=== PATIENT | male | born 1985 | race Hispanic/Latino ===

== ENCOUNTER → 2019-04-03 | Outpatient (CLI) | payer OTHER ==
[~2019-04-03] MED LIST: ASCO10007 PO; INSU300I SQ; MULT-462 PO
== END | disposition home or self-care (01) ==
LOC: RAH 08:51
PROVIDERS: ATTEND Internal Medicine
DX: N32.9 Bladder disorder, unspecified (principal); N32.0 Bladder-neck obstruction
CPT/HCPCS: 76770

== ENCOUNTER 2019-05-30 13:47 | Inpatient (IN) | payer OTHER | END 2019-06-05 21:20 | disposition home or self-care (01) | LOC: EDH 13:47 → EDHIP 16:47 → 3DH 20:35 | PROC: 0JBQ0ZZ Excision of Right Foot Subcutaneous Tissue and Fascia, Open Approach (ICD-10-PCS; principal; 2019-06-02 16:30) | DX: A41.9 Sepsis, unspecified organism (principal); L03.115 Cellulitis of right lower limb; L02.611 Cutaneous abscess of right foot; D64.9 Anemia, unspecified; E66.9 Obesity, unspecified; Z68.35 Body mass index [BMI] 35.0-35.9, adult; I10 Essential (primary) hypertension; E11.9 Type 2 diabetes mellitus without complications ==

== ENCOUNTER 2020-10-12 19:38 | Inpatient (IN) | payer OTHER ==
[~2020-10-12] VITALS: Ht 165.1 cm; Wt 96.2 kg
[~2020-10-12 19:38] MED LIST changes: +AMLO-340 PO; +AMLO5TAB4 PO; -ASCO10007 PO; +INSU100I26 SQ; -INSU300I SQ; +METF-446 PO; +METO25 PO; -MULT-462 PO
[2020-10-12 20:58] LABS: INR 0.95 (0.85-1.15); PARTIAL THROMBOPLASTIN TIME 28.2 SEC (26.3-35.5); PROTHROMBIN TIME 10.3 SEC (9.6-11.6)
[2020-10-12 21:02] LABS: BASOPHILS % (AUTO) 0.2 % (0.0-5.0); EOSINOPHILS % (AUTO) 0.1 % (0.0-8.0); HEMATOCRIT 36.8 % (42-54); LYMPHOCYTES % (AUTO) 13.9 % (21.0-51.0); MEAN CORPUSCULAR HEMOGLOBIN 29.2 pg (27.0-33.0); MEAN CORPUSCULAR HGB CONC 34.8 g/dL (32.0-36.0); MEAN CORPUSCULAR VOLUME 83.8 fL (79-99); MONOCYTES % (AUTO) 8.3 % (3.0-13.0); RED BLOOD CELL COUNT(AUTO) 4.39 MIL/uL (4.50-6.20); RED CELL DISTRIBUTION WIDTH 11.6 % (11.0-15.5); WHITE BLOOD COUNT (AUTO) 9.5 K/uL (4.8-10.8)
[2020-10-12 21:04] LABS: PLATELET COUNT (AUTO) 720 K/uL (130-400)
[2020-10-12 21:18] LABS: ALBUMIN 2.6 g/dL (3.5-5.0); BILIRUBIN,TOTAL 0.3 mg/dL (0.2-1.0); CREATININE 2.3 mg/dL (0.5-1.5); POTASSIUM 4.3 mmol/L (3.5-5.1); TOTAL PROTEIN, SERUM 7.4 g/dL (6.0-8.3)
[2020-10-12] MEDS ORDERED: SODIUM CHLORIDE 0.9% 1000ML 1,000 ML IV ONE ×2 (21:24→22:29)
[2020-10-12] MEDS ORDERED: INSULIN HUMULIN R 100 UNIT/ML 3ML ONE (21:25)
[2020-10-12 21:27] LABS: PLATELET MORPHOLOGY COMMENT INCREASED
[2020-10-12 21:44] LABS: ABG BASE EXCESS 2.6 mmol/L (-2.0-3.0); ABG HCO3 26.2 mmol/L (21.0-28.0); ABG OXYGEN SATURATION 96.8 % (95.0-99.0); ABG PCO2 37 mmHg (35-48)
[2020-10-13] VITALS (8 sets, daily range): BP systolic 140–186; BP diastolic 79–112
[2020-10-13] MEDS ORDERED: MORPHINE SULFATE 2 MG/ML 1ML SYG IV PRN (05:00)
[2020-10-13] MEDS ORDERED: ONDANSETRON HCL 4 MG/2 ML VIAL IV PRN (05:00)
[2020-10-13] MEDS ORDERED: ACETAMINOPHEN 325 MG TAB PO PRN ×2 (05:00)
[2020-10-13 06:25] LABS: BASOPHILS % (AUTO) 0.3 % (0.0-5.0); EOSINOPHILS % (AUTO) 1.2 % (0.0-8.0); HEMATOCRIT 34.5 % (42-54); LYMPHOCYTES % (AUTO) 35.8 % (21.0-51.0); MEAN CORPUSCULAR HEMOGLOBIN 29.5 pg (27.0-33.0); MEAN CORPUSCULAR HGB CONC 34.8 g/dL (32.0-36.0); MEAN CORPUSCULAR VOLUME 84.8 fL (79-99); MONOCYTES % (AUTO) 8.9 % (3.0-13.0); NEUTROPHILS % (AUTO) 53.2 % (40.0-77.0); PLATELET COUNT (AUTO) 592 K/uL (130-400); RED BLOOD CELL COUNT(AUTO) 4.07 MIL/uL (4.50-6.20); RED CELL DISTRIBUTION WIDTH 11.7 % (11.0-15.5); WHITE BLOOD COUNT (AUTO) 6.9 K/uL (4.8-10.8)
[2020-10-13] MEDS ORDERED: [UNRECOGNIZED DRUG - OTHER] SQ (06:49)
[2020-10-13] MEDS ORDERED: METO50TA18 PO (06:49)
[2020-10-13 06:51] LABS: ALBUMIN 2.3 g/dL (3.5-5.0); BILIRUBIN,TOTAL 0.3 mg/dL (0.2-1.0); CREATININE 1.7 mg/dL (0.5-1.5); POTASSIUM 3.7 mmol/L (3.5-5.1); TOTAL PROTEIN, SERUM 6.5 g/dL (6.0-8.3)
[2020-10-13] MEDS: SODIUM CHLORIDE 0.9% 1000ML 1,000 ML IV SCH ×2 (06:57→15:00)
[2020-10-13 09:06] LABS: APPEARANCE,URINE Clear (CLEAR); BILIRUBIN,URINE Negative (NEGATIVE); COLOR,URINE Yellow (YELLOW); GLUCOSE, URINE (UA) >=1000 mg/dL (NEGATIVE); KETONES,URINE Negative (NEGATIVE); LEUKOCYTE ESTERASE ,URINE Negative (NEGATIVE); NITRATE,URINE Negative (NEGATIVE); OCCULT BLOOD,URINE Moderate (NEGATIVE); PH,URINE 5.5 (5.0-8.0); PROTEIN,URINE 300 mg/dL (NEGATIVE); UROBILINOGEN,URINE 0.2 mg/dL (0.2-1.0)
[2020-10-13 09:15] LABS: AMPHET/METH SCREEN,URINE NEGATIVE (NEGATIVE); BARBITURATE SCREEN, URINE NEGATIVE (NEGATIVE); BENZODIAZEPINES SCREEN,URINE NEGATIVE (NEGATIVE); CANNABINOID SCREEN,URINE NEGATIVE (NEGATIVE); COCAINE SCREEN,URINE NEGATIVE (NEGATIVE); OPIATE SCREEN,URINE NEGATIVE (NEGATIVE); PHENCYCLIDINE SCREEN,URINE NEGATIVE (NEGATIVE)
[2020-10-13 09:16] LABS: HEMOGLOBIN A1C 10.9 % (4.0-6.0)
[2020-10-13] MEDS: FAMOTIDINE/PF 20 MG/2 ML VIAL IV SCH (09:22)
[2020-10-13] MEDS: METOPROLOL TARTRATE 50 MG TAB PO SCH ×2 (09:22→20:59)
[2020-10-13 09:48] LABS: BACTERIA,URINE Rare /HPF (None Seen); RBC,URINE 0-1 /HPF (0-1); SPERM,URINE Few /HPF (None Seen); SQUAMOUS EPITHELIAL CELL,UR Rare /HPF (0-2)
[2020-10-13] MEDS ORDERED: REGADENOSON 0.4 MG/5 ML PF SYG IVP SCH (11:15)
[2020-10-13] MEDS ORDERED: LABETALOL HCL 5 MG/ML 20ML VIAL IV PRN (13:15)
[2020-10-13] MEDS ORDERED: LABETALOL 20 MG/4 ML DISP.SYRIN IV ONE (13:26)
--- NOTE | 2020-10-13 14:05 | NUR ---
PATIENT UNAVAILABLE FOR ECHO. PATIENT IN NUC MED.
--- NOTE | 2020-10-13 17:00 | NUR ---
[facility] CM met with pt this morning, discussed dc plans. Pt is independent prior to admission, lives at home with parents and gradmother. Pt has a shower chair, wheelchair, glucometer and strips, uses [facility] for meds. Denies any other equipments/services. Feel safe to go back home, family able to assist with transportation and needs as necessary. Pt selfpay, given [employer] packet, [facility] assisting. DC plan to home once stable. CM to continue to follow up. Addendum: 10/13/20 at 1703 by ANNIKA WADSWORTH LVN CM Amended: Links added.
[2020-10-13] MEDS: INSULIN HUMULIN R 100 UNIT/ML 3ML SQ SCH (20:58)
[2020-10-14] MEDS: SODIUM CHLORIDE 0.9% 1000ML 1,000 ML IV SCH ×2 (01:00→11:00)
[2020-10-14 03:18] VITALS: BP 137/81
[2020-10-14] MEDS: INSULIN HUMULIN R 100 UNIT/ML 3ML SQ SCH ×2 (06:31→13:24)
[2020-10-14] MEDS ORDERED: INSULIN GLARGINE 100 UNITS/ML 10 ML VIAL SQ SCH (08:30)
[2020-10-14] MEDS ORDERED: Vitamin B Complex/Vit C/Folic Acid PO SCH (09:00)
[2020-10-14 09:07] VITALS: BP 167/114
[2020-10-14] MEDS: FAMOTIDINE/PF 20 MG/2 ML VIAL IV SCH (09:46)
[2020-10-14] MEDS: METOPROLOL TARTRATE 50 MG TAB PO SCH (09:46)
[2020-10-14] MEDS ORDERED: INSULIN HUMULIN R 100 UNIT/ML 3ML SQ SCH (11:30)
[2020-10-14 15:06] VITALS: BP 156/83
--- NOTE | 2020-10-14 15:11 | NUR ---
RD NOTIFICATION Pt admitted due to DM with hyperglycemia and hyponatremia. As per EMR pt had a syncopal episode prior to admission. As per EMR, Lexiscan showed no evidence of ischemia, Pt is currently on a 60 gm CC diet and consuming 100% Pt has a hx of type 2 DM insulin dependent. Pt stated not having adequate prior education to DM diet. Pt stated his previous weight was of 214 lbs. No significant wt loss or poor PO intake. RD RECOMMENDATION: Continue current diet order Monitor PO intake As per MD notes, if pt has proteinuria, pt will benefit from a renal non HD diet modifier to current diet order Pt denied education at this time. Pt stated he is discharging soon RD to follow pt's status Contact as nutritional concerns arise LABS: NA 135, CL 100, CREAT 1.7, GFR 49, A1C 10.9, TROPONIN 0.08, TCK 496, ALB 2.3, TOT PRO 6.5, BUN 20 LBM: 10/13/20 Addendum: 10/14/20 at [address] Amended: Links added.
--- NOTE | 2020-10-14 16:26 | NUR ---
DISCHARGE INSTRUCTION PROVIDED TO PATIENT .PATIENT VERBALIZED UNDERSTANDING
--- NOTE | 2020-10-17 10:28 | NUR ---
TRANSITIONAL CARE - POST-DISCHARGE NOTE I called Mr Otero at [phone]. As per Mr. Otero, he is doing well. He states he is taking his home medications as ordered. He also states he has yet to set up any follow up appointments, but is aware of upcoming appointment with Dr Moore. I offered to call his PCP and Dr Rodriguez to set appointments. He politely refused and stated he would call them on his own today to make appointments. Patient denied pian SOB, N/V/D, dizzines, CP, fevers.
== END 2020-10-14 14:00 | disposition home or self-care (01) | DRG 312 ==
LOC: EDH 19:38 → EDHIP 19:39 → 4DH 10-13 05:26
PROVIDERS: ADMIT Internal Medicine; ATTEND Internal Medicine
DX: R55 Syncope and collapse (principal); E44.1 Mild protein-calorie malnutrition; E87.1 Hypo-osmolality and hyponatremia; N17.9 Acute kidney failure, unspecified; M62.82 Rhabdomyolysis; E11.65 Type 2 diabetes mellitus with hyperglycemia; E11.21 Type 2 diabetes mellitus with diabetic nephropathy; D64.9 Anemia, unspecified; R07.9 Chest pain, unspecified; R77.8 Other specified abnormalities of plasma proteins; E11.319 Type 2 diabetes mellitus with unspecified diabetic retinopathy without macular edema; E11.42 Type 2 diabetes mellitus with diabetic polyneuropathy; E78.5 Hyperlipidemia, unspecified; N18.9 Chronic kidney disease, unspecified; Z79.4 Long term (current) use of insulin; Z89.421 Acquired absence of other right toe(s); Z88.8 Allergy status to other drugs, medicaments and biological substances; Z68.35 Body mass index [BMI] 35.0-35.9, adult; Z20.828 Contact with and (suspected) exposure to other viral communicable diseases
CPT/HCPCS: 36415; 36600; 70450; 71045; 78452; 80053; 80305; 81001; 82550; 82803; 82948; 83036; 84145; 84484; 85025; 85610; 85730; 87426; 93005; 93017; 93306; 93356; 96374; A9500; G0378; J1815; J2785; J3490; J7030; U0003

== ENCOUNTER 2021-02-22 15:03 | Inpatient (IN) | payer OTHER ==
[~2021-02-22] VITALS: Ht 167.6 cm; Wt 98.0 kg
[~2021-02-22 15:03] MED LIST changes: -AMLO-340 PO; -AMLO5TAB4 PO; -INSU100I26 SQ; -METO25 PO; +METO50TA18 PO
[2021-02-22] MEDS ORDERED: 0.9%NACL 1000ML 1,000 ML IV ONE ×3 (16:19→21:58)
[2021-02-22] MEDS ORDERED: LIDOCAINE HCL 2% VISCOUS 15 ML UDCUP ONE (16:20)
[2021-02-22] MEDS ORDERED: MAG/ALUM/SIMETH 30 ML UDCUP ONE (16:20)
[2021-02-22] MEDS ORDERED: METOCLOPRAMIDE 10 MG/2 ML VIAL ONE (16:20)
[2021-02-22] MEDS ORDERED: PANTOPRAZOLE 40 MG/VIAL ONE (16:21)
[2021-02-22 16:28] LABS: BASOPHILS % (AUTO) 0.5 % (0.0-5.0); EOSINOPHILS % (AUTO) 0.2 % (0.0-8.0); HEMATOCRIT 45.3 % (42-54); LYMPHOCYTES % (AUTO) 13.7 % (21.0-51.0); MEAN CORPUSCULAR HEMOGLOBIN 29.4 pg (27.0-33.0); MEAN CORPUSCULAR HGB CONC 35.3 g/dL (32.0-36.0); MEAN CORPUSCULAR VOLUME 83.1 fL (79-99); NEUTROPHILS % (AUTO) 79.4 % (40.0-77.0); PLATELET COUNT (AUTO) 307 K/uL (130-400); RED BLOOD CELL COUNT(AUTO) 5.45 MIL/uL (4.50-6.20); WHITE BLOOD COUNT (AUTO) 9.5 K/uL (4.8-10.8)
[2021-02-22 16:45] LABS: ALBUMIN 3.3 g/dL (3.5-5.0); BILIRUBIN,TOTAL 0.4 mg/dL (0.2-1.0); CREATININE 2.4 mg/dL (0.5-1.5); POTASSIUM 4.5 mmol/L (3.5-5.1); TOTAL PROTEIN, SERUM 7.8 g/dL (6.0-8.3)
[2021-02-22 19:13] LABS: APPEARANCE,URINE Cloudy (CLEAR); BILIRUBIN,URINE Negative (NEGATIVE); COLOR,URINE Yellow (YELLOW); GLUCOSE, URINE (UA) 500 mg/dL (NEGATIVE); KETONES,URINE Negative (NEGATIVE); LEUKOCYTE ESTERASE ,URINE Negative (NEGATIVE); NITRATE,URINE Negative (NEGATIVE); OCCULT BLOOD,URINE Small (NEGATIVE); PROTEIN,URINE 300 mg/dL (NEGATIVE); UROBILINOGEN,URINE 0.2 mg/dL (0.2-1.0)
[2021-02-22 19:19] LABS: AMPHET/METH SCREEN,URINE NEGATIVE (NEGATIVE); BARBITURATE SCREEN, URINE NEGATIVE (NEGATIVE); BENZODIAZEPINES SCREEN,URINE NEGATIVE (NEGATIVE); CANNABINOID SCREEN,URINE NEGATIVE (NEGATIVE); COCAINE SCREEN,URINE NEGATIVE (NEGATIVE); OPIATE SCREEN,URINE NEGATIVE (NEGATIVE); PHENCYCLIDINE SCREEN,URINE NEGATIVE (NEGATIVE)
[2021-02-22 19:27] LABS: BACTERIA,URINE Few /HPF (None Seen); SQUAMOUS EPITHELIAL CELL,UR Rare /HPF (0-2); WBC,URINE 0-1 /HPF (0-1)
[2021-02-22 19:30] LABS: COARSE GRANULAR CASTS,URINE 0-2 /LPF (None Seen)
[2021-02-22] MEDS ORDERED: NITROGLYCERIN 0.4 MG SL TAB SL PRN (20:30)
[2021-02-22] MEDS ORDERED: GLUCAGON 1MG KIT 1 MG ML IM PRN (20:30)
[2021-02-22] MEDS ORDERED: ACETAMINOPHEN 325 MG TAB PO PRN ×2 (20:30)
[2021-02-22] MEDS ORDERED: DEXTROSE 50%-WATER 50 ML DISP.SYRIN IV PRN (20:30)
[2021-02-22] MEDS: 0.9%NACL 1000ML 1,000 ML IV SCH (20:30)
[2021-02-22] MEDS ORDERED: ONDANSETRON 4MG INJ IV PRN (20:30)
[2021-02-22 20:41] LABS: HEMOGLOBIN A1C 8.4 % (4.0-6.0)
[2021-02-22] MEDS: HEPARIN 5,000 UNIT VIAL SQ SCH (20:45)
[2021-02-22] MEDS: FAMOTIDINE 20MG TAB PO SCH (21:00)
[2021-02-22] MEDS: INSULIN HUMULIN R 100 UNIT/ML 3ML SQ SCH (21:00)
[2021-02-22] MEDS ORDERED: HEPARIN 5,000 UNIT VIAL ONE (22:34)
[2021-02-22 23:40] VITALS: BP 148/91
[2021-02-23] MEDS ORDERED: ROSU20TA31 PO (00:06)
[2021-02-23] MEDS ORDERED: INSU300I SQ (00:06)
[2021-02-23] MEDS ORDERED: FOLI1TAB61 PO (00:06)
[2021-02-23] MEDS ORDERED: METF-527 PO (00:06)
[2021-02-23] MEDS ORDERED: INSREG SQ (00:06)
[2021-02-23] MEDS: 0.9%NACL 1000ML 1,000 ML IV SCH ×2 (00:32→16:30)
[2021-02-23 04:00] VITALS: BP 158/88
[2021-02-23] MEDS: HEPARIN 5,000 UNIT VIAL SQ SCH ×3 (04:33→20:05)
[2021-02-23 05:17] LABS: BASOPHILS % (AUTO) 0.5 % (0.0-5.0); EOSINOPHILS % (AUTO) 0.5 % (0.0-8.0); LYMPHOCYTES % (AUTO) 30.2 % (21.0-51.0); MEAN CORPUSCULAR HEMOGLOBIN 28.8 pg (27.0-33.0); MEAN CORPUSCULAR HGB CONC 34.1 g/dL (32.0-36.0); MEAN CORPUSCULAR VOLUME 84.4 fL (79-99); MONOCYTES % (AUTO) 9.7 % (3.0-13.0); NEUTROPHILS % (AUTO) 58.9 % (40.0-77.0); PLATELET COUNT (AUTO) 276 K/uL (130-400); RED BLOOD CELL COUNT(AUTO) 4.86 MIL/uL (4.50-6.20); RED CELL DISTRIBUTION WIDTH 12.3 % (11.0-15.5)
[2021-02-23 05:44] LABS: ALBUMIN 2.9 g/dL (3.5-5.0); BILIRUBIN,TOTAL 0.3 mg/dL (0.2-1.0); MAGNESIUM 1.9 mg/dL (1.80-2.40)
[2021-02-23] MEDS: INSULIN HUMULIN R 100 UNIT/ML 3ML SQ SCH ×4 (06:09→20:06)
[2021-02-23 08:04] VITALS: BP 185/107
[2021-02-23] MEDS ORDERED: ENOXAPARIN SODIUM 30 MG/0.3 ML SQ SCH (09:00)
[2021-02-23] MEDS: METOPROLOL TARTRATE 50 MG TAB PO SCH ×2 (09:21→19:59)
[2021-02-23] MEDS: Vitamin B Complex/Vit C/Folic Acid PO SCH (09:21)
[2021-02-23] MEDS: ATORVASTATIN 40 MG TABLET PO SCH (09:21)
[2021-02-23 12:04] VITALS: BP 188/105
[2021-02-23] MEDS: HYDRALAZINE 20MG/ML VIAL IV PRN (12:10)
[2021-02-23] MEDS ORDERED: MAGNESIUM 2GM PREMIX 50ML 50 ML IV SCH (15:15)
[2021-02-23 17:17] VITALS: BP 141/88
[2021-02-23] MEDS: FAMOTIDINE 20MG TAB PO SCH (19:59)
[2021-02-23 20:00] VITALS: BP 158/96
[2021-02-24] VITALS (7 sets, daily range): BP systolic 129–184; BP diastolic 65–102
[2021-02-24] MEDS: 0.9%NACL 1000ML 1,000 ML IV SCH ×3 (02:38→20:29)
[2021-02-24] MEDS: HEPARIN 5,000 UNIT VIAL SQ SCH ×3 (04:59→20:25)
[2021-02-24 05:28] LABS: BASOPHILS % (AUTO) 0.9 % (0.0-5.0); EOSINOPHILS % (AUTO) 1.5 % (0.0-8.0); LYMPHOCYTES % (AUTO) 39.4 % (21.0-51.0); MEAN CORPUSCULAR HEMOGLOBIN 28.6 pg (27.0-33.0); MEAN CORPUSCULAR HGB CONC 33.7 g/dL (32.0-36.0); MEAN CORPUSCULAR VOLUME 84.8 fL (79-99); MONOCYTES % (AUTO) 8.7 % (3.0-13.0); NEUTROPHILS % (AUTO) 49.4 % (40.0-77.0); PLATELET COUNT (AUTO) 307 K/uL (130-400); RED BLOOD CELL COUNT(AUTO) 5.07 MIL/uL (4.50-6.20); RED CELL DISTRIBUTION WIDTH 12.3 % (11.0-15.5); WHITE BLOOD COUNT (AUTO) 7.6 K/uL (4.8-10.8)
[2021-02-24 06:02] LABS: CREATININE 1.8 mg/dL (0.5-1.5); POTASSIUM 3.4 mmol/L (3.5-5.1)
[2021-02-24] MEDS: INSULIN HUMULIN R 100 UNIT/ML 3ML SQ SCH ×4 (06:54→21:00)
[2021-02-24] MEDS: METOPROLOL TARTRATE 50 MG TAB PO SCH ×2 (11:02→20:18)
[2021-02-24] MEDS: ATORVASTATIN 40 MG TABLET PO SCH (11:02)
[2021-02-24] MEDS: Vitamin B Complex/Vit C/Folic Acid PO SCH (11:02)
[2021-02-24] MEDS ORDERED: HYDRALAZINE 20MG/ML VIAL IV PRN (17:30)
[2021-02-24] MEDS: HYDRALAZINE 20MG/ML VIAL IV PRN (17:51)
[2021-02-24] MEDS: FAMOTIDINE 20MG TAB PO SCH (20:18)
[2021-02-25 01:01] VITALS: BP 134/88
[2021-02-25 04:00] VITALS: BP 136/74
[2021-02-25] MEDS: HEPARIN 5,000 UNIT VIAL SQ SCH (05:57)
[2021-02-25] MEDS: INSULIN HUMULIN R 100 UNIT/ML 3ML SQ SCH (05:59)
[2021-02-25 06:24] LABS: ALBUMIN 2.8 g/dL (3.5-5.0); BILIRUBIN,TOTAL 0.3 mg/dL (0.2-1.0); CREATININE 1.7 mg/dL (0.5-1.5); MAGNESIUM 1.9 mg/dL (1.80-2.40); POTASSIUM 3.8 mmol/L (3.5-5.1); TOTAL PROTEIN, SERUM 6.5 g/dL (6.0-8.3)
[2021-02-25 08:00] VITALS: BP 165/79
[2021-02-25] MEDS: Vitamin B Complex/Vit C/Folic Acid PO SCH (08:53)
[2021-02-25] MEDS: METOPROLOL TARTRATE 50 MG TAB PO SCH (08:53)
[2021-02-25] MEDS: ATORVASTATIN 40 MG TABLET PO SCH (08:53)
[2021-02-25] MEDS: 0.9%NACL 1000ML 1,000 ML IV SCH (09:02)
[2021-02-25 11:31] VITALS: BP 149/72
== END 2021-02-25 15:20 | disposition home or self-care (01) | DRG 683 ==
LOC: EDH 15:03 → EDHIP 20:11 → 3AH 23:43
PROVIDERS: ADMIT Hospitalist; ATTEND Hospitalist
DX: N17.9 Acute kidney failure, unspecified (principal); M62.82 Rhabdomyolysis; N18.30 Chronic kidney disease, stage 3 unspecified; Z68.33 Body mass index [BMI] 33.0-33.9, adult; E78.5 Hyperlipidemia, unspecified; K76.0 Fatty (change of) liver, not elsewhere classified; E66.9 Obesity, unspecified; E11.22 Type 2 diabetes mellitus with diabetic chronic kidney disease; I12.9 Hypertensive chronic kidney disease with stage 1 through stage 4 chronic kidney disease, or unspecified chronic kidney disease; Z20.822 Contact with and (suspected) exposure to COVID-19; Z88.2 Allergy status to sulfonamides; Z88.8 Allergy status to other drugs, medicaments and biological substances; Z89.421 Acquired absence of other right toe(s); Z83.3 Family history of diabetes mellitus; Z82.49 Family history of ischemic heart disease and other diseases of the circulatory system
CPT/HCPCS: 36415; 70450; 74018; 76705; 80048; 80053; 80305; 81001; 82150; 82550; 82948; 83036; 83690; 83735; 84484; 85025; 87426; 93005; C9113; G0378; J0360; J1644; J1815; J2405; J2765; J3475; J7030; U0003

== ENCOUNTER 2021-05-18 22:49 | Emergency (ER) | payer OTHER ==
[~2021-05-18] VITALS: Ht 167.6 cm; Wt 99.8 kg
[~2021-05-18 22:49] MED LIST changes: +FOLI1TAB61 PO; +INSREG SQ; +INSU300I SQ; -METF-446 PO; +METF-527 PO
[2021-05-18 22:50] VITALS: BP 175/105
[2021-05-18 23:57] VITALS: BP 158/85
[2021-05-18] MEDS ORDERED: SOLU-MEDROL 125MG VIAL ONE (23:59)
[2021-05-19] MEDS ORDERED: SOLU-MEDROL 125MG VIAL IM ONE
[2021-05-19] MEDS ORDERED: PRED20TA3 PO (00:13)
[2021-05-19] MEDS ORDERED: SOLU-MEDROL 125MG VIAL ONE (00:23)
== END 2021-05-19 00:46 | disposition home or self-care (01) ==
LOC: EDH 23:17
DX: G51.0 Bell's palsy (principal); B02.9 Zoster without complications; E11.9 Type 2 diabetes mellitus without complications; E78.00 Pure hypercholesterolemia, unspecified; I10 Essential (primary) hypertension; Z79.4 Long term (current) use of insulin; Z79.52 Long term (current) use of systemic steroids; Z79.899 Other long term (current) drug therapy; Z88.1 Allergy status to other antibiotic agents; Z88.2 Allergy status to sulfonamides
CPT/HCPCS: 96372; 99283; J2930 ×2

== ENCOUNTER 2022-07-11 18:46 | Emergency (ER) | payer OTHER ==
[~2022-07-11] VITALS: Ht 167.6 cm; Wt 99.3 kg
[~2022-07-11 18:46] MED LIST changes: +PRED20TA3 PO
[2022-07-11] MEDS ORDERED: 0.9%NACL 1000ML 1,000 ML IV SCH (19:00)
[2022-07-11] MEDS ORDERED: PROMETHAZINE HCL 25 MG/ML 1ML AMPULE IM SCH (19:30)
[2022-07-11] MEDS ORDERED: ACETAMINOPHEN 500 MG TABLET PO ONE (19:30)
[2022-07-11] MEDS ORDERED: 0.9% NACL 500ML IV.SOLN 500 ML IV SCH (19:30)
[2022-07-11] MEDS ORDERED: CYCLOBENZAPRINE HCL 10 MG TABLET PO ONE (19:30)
[2022-07-11 19:31] LABS: BASOPHILS % (AUTO) 0.8 % (0.0-5.0); EOSINOPHILS % (AUTO) 2.6 % (0.0-8.0); HEMATOCRIT 39.7 % (42-54); LYMPHOCYTES % (AUTO) 28.6 % (21.0-51.0); MEAN CORPUSCULAR HEMOGLOBIN 30.3 pg (27.0-33.0); MEAN CORPUSCULAR HGB CONC 34.8 g/dL (32.0-36.0); MEAN CORPUSCULAR VOLUME 87.1 fL (79-99); MONOCYTES % (AUTO) 8.8 % (3.0-13.0); NEUTROPHILS % (AUTO) 59.1 % (40.0-77.0); PLATELET COUNT (AUTO) 308 K/uL (130-400); RED BLOOD CELL COUNT(AUTO) 4.56 MIL/uL (4.50-6.20); WHITE BLOOD COUNT (AUTO) 7.8 K/uL (4.8-10.8)
[2022-07-11] MEDS ORDERED: HYDRALAZINE 20MG/ML VIAL ONE (19:39)
[2022-07-11] MEDS ORDERED: ACETAMINOPHEN 500 MG TABLET ONE (19:39)
[2022-07-11] MEDS ORDERED: CYCLOBENZAPRINE HCL 10 MG TABLET ONE (19:39)
[2022-07-11 19:40] LABS: CREATININE 2.9 mg/dL (0.5-1.5)
[2022-07-11 19:44] LABS: ALBUMIN 2.3 g/dL (3.5-5.0); TOTAL PROTEIN, SERUM 6.5 g/dL (6.0-8.3)
[2022-07-11] MEDS ORDERED: HYDRALAZINE 20MG/ML VIAL IV ONE ×2 (20:00→20:30)
[2022-07-11 20:41] VITALS: BP 130/79
[2022-07-11] MEDS ORDERED: RIZA10TA23 PO (20:47)
[2022-07-11] MEDS ORDERED: CYCL10TA16 PO (20:49)
== END 2022-07-11 20:59 | disposition home or self-care (01) ==
LOC: EDH 18:46
DX: G43.909 Migraine, unspecified, not intractable, without status migrainosus (principal); N28.9 Disorder of kidney and ureter, unspecified; I10 Essential (primary) hypertension; Z20.822 Contact with and (suspected) exposure to COVID-19; E66.01 Morbid (severe) obesity due to excess calories; E78.00 Pure hypercholesterolemia, unspecified; E11.9 Type 2 diabetes mellitus without complications; Z88.1 Allergy status to other antibiotic agents; Z88.2 Allergy status to sulfonamides; Z79.4 Long term (current) use of insulin; Z79.52 Long term (current) use of systemic steroids; Z68.35 Body mass index [BMI] 35.0-35.9, adult
CPT/HCPCS: 99284; 96374; 87635; 96361; 80053; 85025; 87804 ×2; 36415; 96376; 96372; C9803; J7040; J2550; J0360 ×2

== ENCOUNTER 2023-12-30 09:50 | Day surgery (SDC) | payer MEDICARE ==
[2023-12-27 15:29] LABS: HEMATOCRIT 37.5 % (42-54); MEAN CORPUSCULAR HEMOGLOBIN 30.1 pg (27.0-33.0); MEAN CORPUSCULAR HGB CONC 33.3 g/dL (32.0-36.0); MEAN CORPUSCULAR VOLUME 90.4 fL (79-99); RED BLOOD CELL COUNT(AUTO) 4.15 MIL/uL (4.50-6.20); RED CELL DISTRIBUTION WIDTH 13.7 % (11.0-15.5); WHITE BLOOD COUNT (AUTO) 6.7 K/uL (4.8-10.8)
[2023-12-27 15:40] LABS: INR 0.97 (0.85-1.15); PROTHROMBIN TIME 11.3 SEC (9.6-11.6)
[2023-12-27 15:41] LABS: PARTIAL THROMBOPLASTIN TIME 31.6 SEC (26.3-35.5)
[2023-12-27 15:54] LABS: POTASSIUM 4.2 mmol/L (3.5-5.1)
[2023-12-27 15:55] VITALS: BP 160/90; PULSE 69; RESP 15
[2023-12-27 15:57] LABS: CREATININE 8.3 mg/dL (0.5-1.5)
[2023-12-30] VITALS (17 sets, daily range): BP systolic 130–164; BP diastolic 69–85; PULSE 60–69; RESP 10–18
[~2023-12-30] VITALS: Ht 167.6 cm; Wt 98.3 kg
[~2023-12-30 09:50] MED LIST changes: +AMLO-258 PO; +CEFAZOLIN SODIUM 1 GM VIAL IVPB PRN; +CETI10TA57 PO; +CHOL500050 PO; +ESCI5TAB16 PO; +FOLI0.8T22 PO; +GABA300C PO; +HYDR25TA67 PO; +ICOS1CAP PO; -METF-527 PO; +METO-409 PO; -METO50TA18 PO; +OMEP-420 PO; +OMEP20CA12 PO; -PRED20TA3 PO; +ROSU10TA28 PO; +SEVE800T27 PO
[2023-12-30] MEDS ORDERED: 0.9% NACL 500ML IV.SOLN 500 ML IV ONE (10:11)
[2023-12-30] MEDS ORDERED: CEFAZOLIN SODIUM 2 GM VIAL ONE (10:11)
[2023-12-30 10:48] LABS: POTASSIUM 4.5 mmol/L (3.5-5.1)
[2023-12-30 10:50] LABS: CREATININE 9.5 mg/dL (0.5-1.5)
[2023-12-30] MEDS ORDERED: CEFAZOLIN SODIUM 1 GM VIAL ONE (11:16)
[2023-12-30] MEDS ORDERED: LIDOCAINE PF 100MG/5ML (2%) SYRINGE 5ML ONE (11:48)
[2023-12-30] MEDS ORDERED: ROCURONIUM BROMIDE 10MG/1ML 5ML VL ONE (11:49)
[2023-12-30] MEDS ORDERED: MIDAZOLAM HCL 1 MG/ML 2ML VIAL ONE (11:49)
[2023-12-30] MEDS ORDERED: PROPOFOL 10 MG/ML 20ML VIAL IV ONE (11:49)
[2023-12-30] MEDS ORDERED: FENTANYL CITRATE PF 50 MCG/1 ML 2ML VIAL ONE (11:49)
[2023-12-30] MEDS: CEFAZOLIN SODIUM 2 GM VIAL IVPB ONE (12:28)
[2023-12-30] MEDS ORDERED: ONDANSETRON 4MG INJ ONE (12:34)
[2023-12-30] MEDS ORDERED: DEXAMETHASONE SOD PHOSPHATE 4 MG/ML 1ML VIAL ONE (12:34)
[2023-12-30] MEDS ORDERED: LIDOCAINE HCL 1% 20 ML VIAL ONE (12:51)
[2023-12-30] MEDS ORDERED: BUPIVACAINE/PF 0.25% 30ML VIAL IJ ONE (12:51)
[2023-12-30] MEDS ORDERED: PROTAMINE SULFATE 10 MG/ML 5 ML VIAL ONE (12:55)
[2023-12-30] MEDS ORDERED: HEPARIN 10,000 UNIT/10ML (1,000 UNIT/ML) VIAL ONE (12:55)
[2023-12-30] MEDS: CEFAZOLIN SODIUM 1 GM VIAL IRRIG ONE (13:01)
[2023-12-30] MEDS: BUPIVACAINE/PF 0.25% 30ML VIAL IJ ONE (13:15)
[2023-12-30] MEDS: LIDOCAINE 1%-EPI 1:100,000 20 ML VIAL IJ ONE (13:15)
[2023-12-30] MEDS: HEPARIN 5,000 UNIT VIAL IRRIG ONE (13:15)
[2023-12-30] MEDS ORDERED: GLYCOPYRROLATE 0.2 MG/ML 5 ML VIAL ONE (13:39)
[2023-12-30] MEDS ORDERED: NEOSTIGMINE METHYLSULFATE 1MG/ML IV ONE (13:40)
== END 2023-12-30 15:35 | disposition home or self-care (01) ==
LOC: DAH 09:50
PROVIDERS: ATTEND Thoracic Surgery (Cardiothoracic Vascular Surgery)
DX: E11.22 Type 2 diabetes mellitus with diabetic chronic kidney disease (principal); I12.0 Hypertensive chronic kidney disease with stage 5 chronic kidney disease or end stage renal disease; N18.6 End stage renal disease; I77.0 Arteriovenous fistula, acquired; Z79.01 Long term (current) use of anticoagulants; Z79.899 Other long term (current) drug therapy; Z98.890 Other specified postprocedural states; Z88.8 Allergy status to other drugs, medicaments and biological substances; Z89.421 Acquired absence of other right toe(s)
CPT/HCPCS: 80048 ×2; 85027; 85610; 85730; 86850 ×2; 86900 ×2; 86901 ×2; 36415 ×2; 93005; 36821; 82948 ×2; 71045; A6260; J1100; A4663 ×2; A6207; J7030; A4452; J7040; J3010; J0690 ×4; J3490 ×3; J0665 ×2; J2001; J2720; J1644 ×3; J2250; J2704; J2405; J2710; A4649 ×2; C1713 ×2; A4930; A4215; A4213; A4222; A4221; A4216; A4223 ×2; G0168

== ENCOUNTER 2024-12-09 07:20 | Day surgery (SDC) | payer OTHER, MEDICARE ==
[~2024-12-09] VITALS: Ht 167.6 cm; Wt 106.1 kg
[2024-12-09] VITALS (11 sets, daily range): BP systolic 125–178; BP diastolic 74–87; PULSE 66–75; RESP 14–18; TEMP 97–97.7
[~2024-12-09 07:20] MED LIST changes: +AURYXIA PO; -CEFAZOLIN SODIUM 1 GM VIAL IVPB PRN; -FOLI1TAB61 PO; -HYDR25TA67 PO; -ICOS1CAP PO; +LINA5TAB PO; +LOSA25TA41 PO; -OMEP-420 PO; -ROSU10TA28 PO; +ROSU10TA72 PO; -SEVE800T27 PO
[2024-12-09] MEDS: 0.9% NACL 500ML IV.SOLN 500 ML IV ONE (08:48)
[2024-12-09] MEDS ORDERED: proPOFol 10 MG/ML 20ML VIAL IV ONE (09:59)
--- NOTE | 2024-12-09 11:49 | NUR ---
FULL AND COMPLETE DISCHARGE INSTRUCTIONS PROVIDED BOTH VERBALLY AND IN WRITING. ALL QUESTIONS ANSWERED. VOICED UNDERSTANDING TO GI PROCEDURE AND FOLLOW UP. PIV REMOVED WITH CATHETER TIP INTACT. W/C WITH FAMILY TO POV TO HOME.
== END 2024-12-09 11:40 | disposition home or self-care (01) ==
LOC: ENDO 07:20 → DAH 07:20 → ENDO 11:40
PROVIDERS: ATTEND Internal Medicine
DX: Z12.11 Encounter for screening for malignant neoplasm of colon (principal); K63.5 Polyp of colon; K31.84 Gastroparesis; R13.10 Dysphagia, unspecified; R11.0 Nausea; R12 Heartburn; D12.2 Benign neoplasm of ascending colon; D12.4 Benign neoplasm of descending colon; K22.9 Disease of esophagus, unspecified; I12.0 Hypertensive chronic kidney disease with stage 5 chronic kidney disease or end stage renal disease; E11.22 Type 2 diabetes mellitus with diabetic chronic kidney disease; N18.6 End stage renal disease; E66.9 Obesity, unspecified; E78.5 Hyperlipidemia, unspecified; Z68.38 Body mass index [BMI] 38.0-38.9, adult; Z80.0 Family history of malignant neoplasm of digestive organs; Z98.890 Other specified postprocedural states; Z88.8 Allergy status to other drugs, medicaments and biological substances; Z86.0100 Personal history of colon polyps, unspecified; Z79.899 Other long term (current) drug therapy; Z79.4 Long term (current) use of insulin
CPT/HCPCS: 82948 ×2; 45380; J7040; J2704; A4620; A4215; A4223; A7002; A4222; A4221; A4663; J7030; A4606; J3490